=== PATIENT | male | born 1950 | race Caucasian/White ===

== ENCOUNTER → 2017-10-06 14:55 | Outpatient (CLI) | payer OTHER, SELFPAY ==
--- NOTE | 2017-10-06 15:06 | XR_ITS ---
XR ribs LT min 3V w CXR1V HISTORY: Anterior upper left rib pain following coughing ITS.REASON: LEFT RIB PAIN ORDERING PHYSICIAN: Atif Ba MD PATIENT AGE: 67 years FINDINGS: A frontal view of the chest shows no acute finding. Multiple views of the Left ribs were obtained. There is cortical irregularity involving the anterolateral aspect of the left sixth and seventh ribs consistent with nondisplaced fractures. These are age indeterminate. No displaced fractures are evident. No other significant anomalies evident. IMPRESSION: Nondisplaced fractures of the left sixth and seventh ribs anterolaterally age indeterminate
== END ==
PROVIDERS: PCP Family Medicine; Visit Provider Family Medicine
DX: R07.81 Pleurodynia (principal)
CPT/HCPCS: 71101

== ENCOUNTER → 2019-03-27 13:15 | Outpatient (CLI) | payer OTHER, MEDICARE, SELFPAY ==
--- NOTE | 2019-03-27 13:32 | CA_ITS ---
APPROVED REPORT Bilateral Lower Extremity Venous Study for Applications Project Manager: RONNI Indications Lower Extremity Pain: calf pain cold extremity/foot Risk Factors Obesity Vein Imaging CFV (L): compressive, spontaneous, phasic, augmentation SFJ (L): compressive, spontaneous, phasic, augmentation FEM (L): compressive, spontaneous, phasic, augmentation POP (L): compressive, spontaneous, phasic, augmentation PTV (L): Compressible GSV (L): Compressible Peroneals (L):Not Visualized GAS (L): Compressible Findings .SVT GSV inner left thigh. SVT noted in superficial veins below knee left lower leg. Dr. Mejia shultz Conclusion Superficial thrombophlebitis is visualized in the lower extremity . No evidence of DVT in the veins scanned of the left lower extremity. Electronically signed by : Nash Barrera MD 03/29/2019 18:47:16
--- NOTE | 2019-03-27 14:20 | CA_ITS ---
APPROVED REPORT Caving Guide: Radha Hernandez, SUPER[employer] Laterality: Bilateral Indications: Pain in LLE, + for SVT's, cold toes Risk Factors Obesity VELOCITY AND DOPPLER WAVEFORM ANALYSIS RIGHT cm/sec Waveform Severity LEFT cm/sec Waveform Severity EXPLOSIVE SPECIALIST 73.9/16.5 Triphasic Prox SFA 70.7/14.9 Triphasic Mid SFA 81.7/21.2 Triphasic Dis SFA 73.9/16.5 Triphasic POP 62.0/12.6 Triphasic Post Tibial 55.8/11.0 Triphasic Ant Tib/Dors Ped 38.1/9.0 Triphasic Peroneal 55.4/10.2 Triphasic Findings No significant elevation of the peak systolic velocity is seen in left lower extremity to suggest a hemodynamically significant stenosis. Suggest further testing due small vessels. Difficult exam. Conclusion No significant elevation of the peak systolic velocity is seen in left lower extremity to suggest a hemodynamically significant stenosis. Suggest further testing due small vessels. Difficult exam. Electronically signed by : Nash Barrera MD 03/29/2019 18:48:36
== END ==
PROVIDERS: PCP Family Medicine; Visit Provider Family Medicine
DX: M79.662 Pain in left lower leg (principal)
CPT/HCPCS: 93926; 93971

== ENCOUNTER → 2021-03-03 16:24 | Outpatient (CLI) | payer MEDICARE, SELFPAY | LOC: RT 16:30 | PROVIDERS: PCP Family Medicine; Visit Provider Family Medicine | DX: R55 Syncope and collapse (principal) | CPT/HCPCS: 93270 ==

== ENCOUNTER → 2021-03-11 13:41 | Outpatient (CLI) | payer MEDICARE, SELFPAY ==
--- NOTE | 2021-03-11 | CA_ITS ---
APPROVED REPORT EXAM: Comprehensive 2D, Doppler, and color-flow Echocardiogram Margin Trimmer: GIOVANNA Singh, RVS Ht: 5 ft 8 in Wt: 237lbs BSA: 2.20 BP: 122/64 mmHg Indications: Syncope, Obesity Echo Enhancing Agent Comments: Technically difficult exam with poor acoustic windows and large body habitus. 2D Dimensions IVSd 1.42 cm LVEF (Visual) 61.20 % PWd 1.26 cm LA Volume 54.90 mL LVDd 4.27 cm LA Volume Index 25.00 mL/m2 (M/F) 16-34 LVDs 2.88 cm Left Atrium 3.56 cm LVOT 1.90 cm (M/F) 1.5-2.5 M-Mode Dimensions LA Diam 3.86 cm (1.9-4.0) Ao Diam 3.69 cm (2.0-3.7) EPSs 0.85 cm TAPSE 1.84 (<1.7) LV Diastology E Decel Time 293.00 (160-240 msec) E/A Ratio 0.73 MED E' 4.90 (< 7 cm/sec) MED A' 10.40 cm/s E'/MED E' Ratio 13.16 (>14) LAT E' 7.10 (<10 cm/sec) LAT A' 16.60 cm/s E/LAT E' Ratio 9.08 (>14) Aortic Valve LVOT Max 90.00 (70-110 cm/s) LVOT VTI 16.77 cm AoV Peak Wilfred. 127.00 (50-130 cm/s) AO Peak GR. 6.50 mmHg AO Mean GR. 3.50 (<5 mmHg) AO VTI 24.49 (18-25 cm) ABELINO (VTI) 1.94 (2.5-4.5 cm2) Mitral Valve MV A Velocity 89.00 (40-130 cm/s) E/A Ratio 0.73 MV Decel. Time 293.00 (160-240 ms) MV Mean Gr. 1.20 (<2mmHg) MV PHT 70.00 ms Pulmonary Valve PV Peak Velocity 116.00 (50-150 cm/s) ID End VMAX 134.00 cm/s Tricuspid Valve TR P. Velocity 188.00 cm/s RAP Estimate 10.00 mmHg RVSP 24.10 mmHg Left Ventricle Left atrium is mildly enlarged, left ventricle is normal size, mild concentric left ventricular hypertrophy, visually estimated ejection fraction 55% with no regional wall motion abnormality, grade 1 diastolic dysfunction seen without tissue Doppler evidence of raise left atrial pressure. Right Ventricle Right atrium and right ventricular normal size and contractility. Aortic Valve Aortic valve is minimally thickened and fibrosed, there is no aortic stenosis or aortic insufficiency. Mitral Valve Mitral valve is grossly normal, there is trace mitral regurgitation. Tricuspid Valve Tricuspid valve grossly normal, there is trace tricuspid regurgitation, tricuspid regurgitation jet velocity is inadequate for calculation of the right ventricular systolic pressure. Pulmonic Valve Pulmonic valve is poorly visualized. Great Vessels Aortic root is normal size. Inferior vena cava is not well visualized. Pericardium No significant pericardial effusion noted. Conclusion 1. Mildly enlarged left atrium, normal left ventricular size, mild to hypertrophy, visually estimated ejection fraction 55% with no regional wall motion abnormality, grade 1 diastolic dysfunction seen without tissue Doppler evidence of raise left atrial pressure. 2. Trace mitral and tricuspid regurgitation. 3. No significant pericardial effusion noted. Electronically signed by : Christiano Ricardo MD 03/12/2021 15:13:58
--- NOTE | 2021-03-11 | CA_ITS ---
APPROVED REPORT Furnace Process Plant Operator: ROSA Laterality: Bilateral Indications: syncope, SOB Doppler Spectral Velocity Analysis ECA (R) 132.90/28.90 cm/s ECA (L) 97.30/27.90 cm/s dICA (R) 60.60/23.90 cm/s dICA (L) 71.30/27.90 cm/s José Miguel (R) 94.10/39.60 cm/s José Miguel (L) 79.00/27.00 cm/s pICA (R) 46.20/12.00 cm/s pICA (L) 86.70/28.90 cm/s dCCA (R) 62.30/10.90 cm/s dCCA (L) 84.80/23.10 cm/s pCCA (R) 72.60/17.30 cm/s pCCA (L) 108.80/29.90 cm/s Vert (R) 32.70/7.70 cm/s Vert (L) 68.40/26.00 cm/s ICA/CCA 1.51 ICA/CCA 1.02 Findings Duplex evaluation demonstrates stenosis of the right proximal internal carotid artery <20% with PSV <140 cm/sec, EDV <100 cm/sec, and IC/CC Ratio <4.0. Duplex evaluation demonstrates stenosis of the left proximal internal carotid artery <20% with PSV <140 cm/sec, EDV <100 cm/sec, and IC/CC Ratio <4.0. Conclusion Duplex evaluation demonstrates stenosis of the right proximal internal carotid artery <20% with PSV <140 cm/sec, EDV <100 cm/sec, and IC/CC Ratio <4.0. Duplex evaluation demonstrates stenosis of the left proximal internal carotid artery <20% with PSV <140 cm/sec, EDV <100 cm/sec, and IC/CC Ratio <4.0. Antegrade vertebral flow bilaterally Electronically signed by : Nash Barrera MD 03/13/2021 09:50:04
== END ==
LOC: RT 13:43
PROVIDERS: PCP Family Medicine; Visit Provider Family Medicine
DX: R55 Syncope and collapse (principal); I51.7 Cardiomegaly; E66.01 Morbid (severe) obesity due to excess calories; Z86.718 Personal history of other venous thrombosis and embolism
CPT/HCPCS: 93306; 93880